=== PATIENT | male | born 1985 | race Hispanic/Latino ===

== ENCOUNTER 2018-06-12 21:39 | Emergency (ER) | payer SELFPAY ==
[~2018-06-12] VITALS: Ht 167.6 cm; Wt 90.7 kg
[2018-06-12] MEDS ORDERED: BUPIVACAINE HCL 0.25% 10ML MPF VIAL INJ ONE (22:00)
[2018-06-12] MEDS ORDERED: TETANUS/DIPHTHERIA TOX ADULT 0.5 ML SYR IM ONE (22:00)
[2018-06-12] MEDS ORDERED: BACITRACIN ZINC 0.9GM TP ONE (22:30)
[2018-06-12 22:52] VITALS: BP 146/96
[2018-06-12] MEDS ORDERED: KEFLEX500 MG PO (22:52)
[2018-06-12] MEDS ORDERED: ULTRAM 50MG50 MG PO (22:52)
== END 2018-06-12 22:58 | disposition home or self-care (01) ==
LOC: ER 21:39
DX: S66.021A Laceration of long flexor muscle, fascia and tendon of right thumb at wrist and hand level, initial encounter (principal); W26.8XXA Contact with other sharp object(s), not elsewhere classified, initial encounter; Y92.008 Other place in unspecified non-institutional (private) residence as the place of occurrence of the external cause
CPT/HCPCS: 90471; 90714; 96372; 99283